=== PATIENT | female | born 2000 | race Caucasian/White ===

== ENCOUNTER 2019-01-20 07:03 | Emergency (ER) | payer BC ==
[2019-01-20 07:18] VITALS: BP 118/72
--- NOTE | 2019-01-20 07:26 | UC ---
Eye Complaint HPI - HPI Summary HPI Summary: 19-year-old female comes in with a chief complaint of right eye drainage and crusting. It started yesterday. She does use contacts. No known trauma. She took her contact out she did see pussy-like drainage. She also has some rhinorrhea and a sore throat. No fevers. Clinically I makes it better. Swallowing makes the sore throat worse. - History of Current Complaint Chief Complaint: UCEye Stated Complaint: SORE THROAT/EYE PAIN Time Seen by Provider: 01/20/19 07:16 Hx Last Menstrual Period: 01/12/19 Pain Intensity: 2 - Allergies/Home Medications Allergies/Adverse Reactions: Allergies Allergy/AdvReac Type Severity Reaction Status Date / Time Penicillins Allergy Unknown Verified 01/20/19 07:18 Reaction Details Home Medications: Home Medications Aspirin/Acetaminophen/Caffeine [Excedrin Extra Strength Caplet] 1 each PO DAILY PRN 01/20/19 [History Confirmed 01/20/19] PMH/Surg Hx/FS Hx/Imm Hx Previously Healthy: Yes - Surgical History Surgical History: Yes Surgery Procedure, Year, and Place: 2009 pt had surgery on Left elbow - Family History Known Family History: Positive: None - Social History Alcohol Use: Occasionally Substance Use Type: None Smoking Status (MU): Never Smoked Tobacco Household Exposure Type: Cigarettes - Immunization History Most Recent Influenza Vaccination: 2014 Most Recent Pneumonia Vaccination: n/a Review of Systems All Other Systems Reviewed And Are Negative: Yes Constitutional: Positive: Negative Skin: Positive: Negative Eyes: Positive: Drainage, Eye Redness ENT: Positive: Sore Throat, Nasal Discharge, Sinus Congestion Respiratory: Positive: Negative Cardiovascular: Positive: Negative Gastrointestinal: Positive: Negative Motor: Positive: Negative Neurovascular: Positive: Negative Musculoskeletal: Positive: Negative Neurological: Positive: Negative Psychological: Positive: Negative Is Patient Immunocompromised?: No Physical Exam Triage Information Reviewed: Yes Appearance: Well-Appearing, No Pain Distress, Well-Nourished Vital Signs: Initial Vital Signs Temp 98.2 F 01/20/19 07:12 Pulse 62 01/20/19 07:12 Resp 16 01/20/19 07:12 BP 118/72 01/20/19 07:12 Pulse Ox 99 01/20/19 07:12 Vital Signs Reviewed: Yes Eye Exam: Normal Eyes: Positive: Conjunctiva Inflamed - rt, Discharge - rt, Other: - perrla/eomi ENT: Positive: Pharyngeal erythema, Nasal congestion, Nasal drainage, TMs normal Neck exam: Normal Neck: Positive: Supple Respiratory: Positive: Lungs clear, Normal breath sounds, No respiratory distress Cardiovascular: Positive: RRR Musculoskeletal Exam: Normal Musculoskeletal: Positive: Strength Intact, ROM Intact Neurological Exam: Normal Neurological: Positive: Alert, Muscle Tone Normal Psychological Exam: Normal Psychological: Positive: Age Appropriate Behavior Skin Exam: Normal Eye Complaint Course/Dx - Differential Dx/Diagnosis Provider Diagnosis: Conjunctivitis, Pharyngitis Discharge - Sign-Out/Discharge Documenting (check all that apply): Patient Departure All imaging exams completed and their final reports reviewed: No Studies - Discharge Plan Condition: Stable Disposition: HOME Prescriptions: Tobramycin 0.3% OPHTH.SANTIAGO* 1 drop RIGHT EYE Q4H #1 btl Patient Education Materials: Conjunctivitis (ED), Pharyngitis (ED) Referrals: Shai Santos MD [Primary Care Provider] - Additional Instructions: FOLLOW UP WITH YOUR DOCTOR IF NOT COMPLETELY IMPROVED. GET RECHECKED SOONER IF YOUR CONDITION WORSENS OR ANY QUESTIONS OR CONCERNS. - Billing Disposition and Condition Condition: STABLE Disposition: Home
--- NOTE | 2019-01-21 11:42 | UC ---
- Progress Note Progress Note: Progress note: Patient called for more time off. Given work note until January 23, 2019. Bar Terrazas MD Course/Dx - Diagnoses Provider Diagnoses: Conjunctivitis, Pharyngitis Discharge - Sign-Out/Discharge Documenting (check all that apply): Post-Discharge Follow Up All imaging exams completed and their final reports reviewed: No Studies - Discharge Plan Condition: Stable Disposition: HOME Prescriptions: Tobramycin 0.3% OPHTH.SANTIAGO* 1 drop RIGHT EYE Q4H #1 btl Patient Education Materials: Pharyngitis (ED), Conjunctivitis (ED) Forms: *Work Release, *Gen. Provider Communication Referrals: Shai Santos MD [Primary Care Provider] - Additional Instructions: FOLLOW UP WITH YOUR DOCTOR IF NOT COMPLETELY IMPROVED. GET RECHECKED SOONER IF YOUR CONDITION WORSENS OR ANY QUESTIONS OR CONCERNS. - Billing Disposition and Condition Condition: STABLE Disposition: Home
== END 2019-01-20 07:40 | disposition home or self-care (01) ==
LOC: UCEAST 07:03
DX: H10.9 Unspecified conjunctivitis (principal); J02.9 Acute pharyngitis, unspecified; Z79.82 Long term (current) use of aspirin; Z88.0 Allergy status to penicillin
CPT/HCPCS: 87651; 99212; G0463

== ENCOUNTER 2019-05-09 13:34 | Emergency (ER) | payer BC ==
[2019-05-09 13:49] VITALS: BP 117/75
--- NOTE | 2019-05-09 14:01 | UC ---
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 She used superglue, but the wound is not healing well and she has increased bruising in the thenar eminence and swelling of the first and second digits. No fever. Tetanus is up to date. 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 - History of Current Complaint Chief Complaint: UCSkin Time Seen by Provider: 05/09/19 13:52 Stated Complaint: RIGHT HAND LACERATION Hx Obtained From: Patient Hx Last Menstrual Period: 05/03/19 Onset/Duration: Sudden Onset, Lasting Days - 2 Skin Exposure Onset/Duration: Days Ago - 2 Timing: Constant Onset Severity: Moderate Current Severity: Moderate Pain Intensity: 5 Location: Discrete Aggravating Factor(s): Touch, Other - hand movement Alleviating Factor(s): Nothing Related History: Trauma - Allergy/Home Medications Allergies/Adverse Reactions: Allergies Allergy/AdvReac Type Severity Reaction Status Date / Time Penicillins Allergy Unknown Verified 05/09/19 13:49 Reaction Details Home Medications: Home Medications busPIRone TAB* [Buspar TAB*] 1 tab PO DAILY 05/09/19 [History Confirmed 05/09/19 ] PMH/Surg Hx/FS Hx/Imm Hx Previously Healthy: Yes Psychological History: Anxiety - Surgical History Surgical History: Yes Surgery Procedure, Year, and Place: 2009 pt had surgery on Left elbow - Family History Known Family History: Positive: Non-Contributory - Social History Occupation: Employed Part-time - works in a longterm, Student Alcohol Use: Occasionally Substance Use Type: None Smoking Status (MU): Never Smoked Tobacco Household Exposure Type: Cigarettes - Immunization History Most Recent Influenza Vaccination: 2014 Most Recent Pneumonia Vaccination: n/a Review of Systems All Other Systems Reviewed And Are Negative: Yes Skin: Positive: Bruising, Other - laceration right hand. Motor: Positive: Decreased ROM Is Patient Immunocompromised?: No Physical Exam Triage Information Reviewed: Yes Appearance: Well-Appearing Vital Signs: Initial Vital Signs Temp 98.4 F 05/09/19 13:43 Pulse 77 05/09/19 13:43 Resp 16 05/09/19 13:43 BP 117/75 05/09/19 13:43 Pulse Ox 99 05/09/19 13:43 ENT: Positive: Pharynx normal Neck exam: Normal Respiratory: Positive: Lungs clear, Normal breath sounds Cardiovascular: Positive: RRR, No Murmur Musculoskeletal Exam: Normal, Other - right hand with swelling of the thenar eminence, with ecchymosis on the palmar surgace. Musculoskeletal: Positive: Strength Intact, ROM Intact - full flexion and extension of digits. Neurological Exam: Normal Psychological Exam: Normal Skin Exam: Other - 1.5 cm laceration, well sealed, about 2 mm wide, on the palmar web space first to second digit. + erythema with swelling. Minimal pain with passive movement of the first and second digits. Digits with mild swelling. No lymphangitis. Superficial scratches on volar surface of wrist, several with erythema, no drainage Course/Dx - Course Course Of Treatment: cephalexin to treat early infection in the right had, along with buky dressing to protect the wound. Ibuprofen for pain control. Follow up if not responding to antibiotic. - Differential Diagnoses - Skin Complaint Differential Diagnoses: Cellulitis, Other - ecchymosis, hematoma - Diagnoses Provider Diagnosis: Cellulitis of right hand Discharge ED - Sign-Out/Discharge Documenting (check all that apply): Patient Departure All imaging exams completed and their final reports reviewed: No Studies - Discharge Plan Condition: Stable Disposition: HOME Prescriptions: cephALEXin [Keflex] 500 mg PO TID #21 capsule Patient Education Materials: Cellulitis (ED) Referrals: Shai Santos MD [Primary Care Provider] - Additional Instructions: Remove the dressing tomorrow and clean the wound. The redness and swelling should not be increasing, and should show signs of improving after 24 hours ( less pain and swelling). If you develop fever or increasing pain with hand movement, please return for evaluation. Keep your hand elevated as much as possible. use ibuprofen 600mg up to 4 times daily for control of pain. - Billing Disposition and Condition Condition: STABLE Disposition: Home
[2019-05-09] MEDS ORDERED: Ibuprofen TAB* 600 MG PO ONE (14:03)
== END 2019-05-09 14:24 | disposition home or self-care (01) ==
LOC: UCCORT 13:34
DX: L03.113 Cellulitis of right upper limb (principal); Z88.0 Allergy status to penicillin; F41.9 Anxiety disorder, unspecified
CPT/HCPCS: 99212; A9270-GY; G0463

== ENCOUNTER 2019-06-05 13:07 | Emergency (ER) | payer BC ==
[2019-06-05 13:42] VITALS: BP 103/65
[2019-06-05] MEDS ORDERED: SUMAtriptan SQ* 6 MG/0.5 ML VIAL SUBCUT ONE (15:31)
--- NOTE | 2019-06-05 15:31 | UC ---
Headache HPI - HPI Summary HPI Summary: 19-year-old female presents with complaints of onset of migraine headache this morning at approximately 7:45 am. Reports history of migraine headaches. Complaints of frontal headache with tunnel vision and photophobia. Has had some nausea and 1 episode of vomiting this morning. States this is her typical migraine presentation although headache seems a little more intense than in the past. Denies blurred vision, double vision, phonophobia, slurred or difficulty speaking, facial droop, dizziness, vertigo, weakness, numbness, or tingling of the arms or legs. - History Of Current Complaint Chief Complaint: UCGeneralIllness Stated Complaint: HEADACHE VOMITING SWEATS Time Seen by Provider: 06/05/19 15:05 Hx Obtained From: Patient Hx Last Menstrual Period: 05/24/19 Pain Intensity: 9 - Allergies/Home Medications Allergies/Adverse Reactions: Allergies Allergy/AdvReac Type Severity Reaction Status Date / Time Penicillins Allergy Unknown Verified 06/05/19 13:42 Reaction Details Home Medications: Home Medications Aspirin/Acetaminophen/Caffeine [Excedrin Migraine Caplet] 1 each PO DAILY [History Confirmed 06/05/19] PMH/Surg Hx/FS Hx/Imm Hx Neurological History: Migraine - Surgical History Surgical History: Yes Surgery Procedure, Year, and Place: 2009 pt had surgery on Left elbow - Family History Known Family History: Positive: Non-Contributory - Social History Occupation: Student Lives: Dormitory/Roommates Alcohol Use: Occasionally Substance Use Type: None Smoking Status (MU): Never Smoked Tobacco Household Exposure Type: Cigarettes - Immunization History Most Recent Influenza Vaccination: 2014 Most Recent Pneumonia Vaccination: n/a Review of Systems All Other Systems Reviewed And Are Negative: Yes Constitutional: Negative: Fever, Chills Eyes: Positive: Photophobia, Other - Tunnel vision. Negative: Blurred Vision, Diplopia ENT: Positive: Negative Respiratory: Positive: Negative Cardiovascular: Positive: Negative Gastrointestinal: Positive: Vomiting, Nausea. Negative: Abdominal Pain, Diarrhea Genitourinary: Positive: Negative Musculoskeletal: Positive: Negative Neurological: Positive: Headache. Negative: Weakness, Paresthesia, Numbness Is Patient Immunocompromised?: No Physical Exam - Summary Physical Exam Summary: GENERAL APPEARANCE: Well developed, well nourished, alert and cooperative, and appears to be in no acute distress. HEAD: Atraumatic. Normocephalic. EYES: Conjunctiva clear. No drainage. PERRL, EOM intact. Vision is grossly intact. EARS: External auditory canals and tympanic membranes clear, hearing grossly intact. NOSE: No nasal discharge. THROAT: Pharynx normal. No tonsilar inflammation, swelling, exudate, or lesions. Uvula midline. Oral cavity normal. Teeth and gingiva in good general condition. NECK: Neck supple, non-tender without lymphadenopathy. CARDIAC: Normal S1 and S2. No S3, S4 or murmurs. Rhythm is regular. There is no peripheral edema, cyanosis or pallor. Extremities are warm and well perfused. Capillary refill is less than 2 seconds. Peripheral pulses intact. LUNGS: Clear to auscultation without rales, rhonchi, wheezing or diminished breath sounds. ABDOMEN: Positive bowel sounds. Soft, nondistended, nontender. No guarding or rebound. No masses or hepatosplenomegally. MUSKULOSKELETAL: ROM intact to all extremities. No joint erythema or tenderness. Normal muscular development. Normal gait. NEUROLOGICAL: CN II-XII intact. Strength and sensation symmetric and intact throughout. Reflexes 2+ throughout. Cerebellar testing normal. SKIN: Skin normal color, texture and turgor with no lesions or eruptions. Triage Information Reviewed: Yes Vital Signs: Initial Vital Signs Temp 97.5 F 06/05/19 13:37 Pulse 53 06/05/19 13:37 Resp 16 06/05/19 13:37 BP 103/65 06/05/19 13:37 Pulse Ox 100 06/05/19 13:37 Vital Signs Reviewed: Yes Re-Evaluation - Re-Evaluation First Eval Re-Evaluation Time: 16:18 Change: Improved Comment: Patient state headache and tunnel vision is much improved. No nausea or vomiting. Feels well enough to go home. Headache Course/Dx - Course Course Of Treatment: 19-year-old female presents with complaints of onset of migraine headache this morning at approximately 7:45 am. Reports history of migraine headaches. Complaints of frontal headache with tunnel vision and photophobia. Has had some nausea and 1 episode of vomiting this morning. States this is her typical migraine presentation although headache seems a little more intense than in the past. Denies blurred vision, double vision, phonophobia, slurred or difficulty speaking, facial droop, dizziness, vertigo, weakness, numbness, or tingling of the arms or legs. Afebrile. Vital signs stable. Patient was neurologically intact and exam was otherwise unremarkable. She was given switch 10 0.6 mg IM with improvement in her symptoms. Recommending use of ibuprofen 600 mg every 8 hours if needed for headache. She is to follow-up with her primary care provider in 3-5 days for recheck of symptoms. Anticipatory guidance and warning symptoms are reviewed with the patient. Verbalizes understanding and agrees with plan of care. - Differential Dx/Diagnosis Differential Diagnosis/HQI/PQRI: Migraine, Sinus Headache, Subarachnoid Hemorrhage, Tension Headache Provider Diagnosis: Migraine headache Discharge ED - Sign-Out/Discharge Documenting (check all that apply): Patient Departure All imaging exams completed and their final reports reviewed: No Studies - Discharge Plan Condition: Stable Disposition: HOME Patient Education Materials: Migraine Headache (ED) Forms: *Work Release Referrals: Shai Santos MD [Primary Care Provider] - 3 Days Additional Instructions: You were given a medication called sumatriptan (Imitrex) in the clinic today with improvement in your symptoms. Take ibuprofen 600 mg every 8 hours as needed for headache. Follow up with your primary care provider in 3-5 days for recheck of symptoms. Seek immediate medical attention in the emergency room if you develop worsening headache, have visual disturbances, weakness or dizziness, persistent vomiting, or any worsening of symptoms. - Billing Disposition and Condition Condition: STABLE Disposition: Home
== END 2019-06-05 16:28 | disposition home or self-care (01) ==
LOC: UCCORT 13:07
DX: G43.909 Migraine, unspecified, not intractable, without status migrainosus (principal); Z88.0 Allergy status to penicillin; Z77.22 Contact with and (suspected) exposure to environmental tobacco smoke (acute) (chronic)
CPT/HCPCS: 99212; G0463; J3030